=== PATIENT | female | born 1995 | race Caucasian/White ===

== ENCOUNTER 2023-10-14 19:29 | Emergency (ER) | payer MEDICARE, OTHER ==
[~2023-10-14] VITALS: Ht 170.2 cm; Wt 64.9 kg
[~2023-10-14 19:29] MED LIST: CEPH500 PO; CYCL10 PO; HYDROCODONE-AC1 EAC5 PO; PRED20 PO
[2023-10-14 19:35] VITALS: BP 144/81
== END 2023-10-14 21:16 | disposition home or self-care (01) ==
LOC: ER 19:29
DX: S93.504A Unspecified sprain of right lesser toe(s), initial encounter (principal); S93.601A Unspecified sprain of right foot, initial encounter; J45.909 Unspecified asthma, uncomplicated; W20.8XXA Other cause of strike by thrown, projected or falling object, initial encounter; Y99.0 Civilian activity done for income or pay; Z88.0 Allergy status to penicillin; Z88.5 Allergy status to narcotic agent; Z79.52 Long term (current) use of systemic steroids
CPT/HCPCS: 73630; 99283-25

== ENCOUNTER 2023-10-15 13:43 | Emergency (ER) | payer MEDICARE, OTHER ==
[~2023-10-15] VITALS: Ht 170.2 cm; Wt 64.9 kg
[2023-10-15 13:58] VITALS: BP 98/69
[2023-10-15 14:59] LABS: Influenza A, PCR NEGATIVE (NEGATIVE); Influenza B, PCR NEGATIVE (NEGATIVE); Resp Syncytial Virus, PCR NEGATIVE (NEGATIVE); SARS-Cov-2 (COVID-19) PCR, MMC NEGATIVE (NEGATIVE)
== END 2023-10-15 15:32 | disposition home or self-care (01) ==
LOC: ER 13:43
PROVIDERS: Physician Assistant
DX: J06.9 Acute upper respiratory infection, unspecified (principal); Z20.822 Contact with and (suspected) exposure to COVID-19; Z88.0 Allergy status to penicillin; Z88.5 Allergy status to narcotic agent; Z91.018 Allergy to other foods; Z91.030 Bee allergy status
CPT/HCPCS: 0241U; 99283

== ENCOUNTER → 2023-10-23 | Outpatient (CLI) | payer MEDICARE, OTHER ==
[2023-10-24 12:28] LABS: Candida species (DNA Probe) Negative (NEGATIVE); G. vaginalis (DNA Probe) Positive (NEGATIVE); T. vaginalis (DNA Probe) Negative (NEGATIVE)
[2023-10-27 12:34] LABS: APTIMA MEDIA TYPE Unisex Swab; C. TRACHOMATIS BY TMA Negative (Negative); N. GONORRHOEAE BY TMA Negative (Negative); SPECIMEN SOURCE Not Provided; T. VAGINALIS BY TMA Negative (Negative)
== END ==
LOC: LAB 18:04 → LAB SHORT 18:04
PROVIDERS: Physician Assistant Surgical
DX: Z72.51 High risk heterosexual behavior (principal)
CPT/HCPCS: 87480; 87491; 87510; 87591; 87660; 87661

== ENCOUNTER 2024-02-12 21:48 | Emergency (ER) | payer OTHER, MEDICARE ==
[~2024-02-12] VITALS: Ht 170.2 cm; Wt 63.5 kg
[2024-02-12 22:13] VITALS: BP 120/78
[2024-02-12] MEDS ORDERED: Ketorolac Tromethamine 30mg Vial IV ONE (23:00)
[2024-02-12] MEDS ORDERED: Prochlorperazine Edisylate 10 mg Vial IV ONE (23:00)
[2024-02-12] MEDS ORDERED: Ondansetron HCl 2 MG / ML 2ML Vial IV ONE (23:00)
[2024-02-12] MEDS ORDERED: RX Prepack 2 Tabs Ondansetron ODT 4MG UD ONE (23:00)
[2024-02-12] MEDS ORDERED: DiphenhydrAMINE HCl 50 MG/ML 1ML Vial IV ONE (23:25)
== END 2024-02-12 23:47 | disposition home or self-care (01) ==
LOC: ER 21:48
DX: S06.0X0A Concussion without loss of consciousness, initial encounter (principal); G43.909 Migraine, unspecified, not intractable, without status migrainosus; V49.9XXA Car occupant (driver) (passenger) injured in unspecified traffic accident, initial encounter; Z88.8 Allergy status to other drugs, medicaments and biological substances; Z88.0 Allergy status to penicillin; Z88.5 Allergy status to narcotic agent; Z91.018 Allergy to other foods; Z91.030 Bee allergy status; Z79.899 Other long term (current) drug therapy; J45.909 Unspecified asthma, uncomplicated
CPT/HCPCS: 96374; 96375; 99283-25; A9270; J0780; J1200; J1885; J2405

== ENCOUNTER → 2024-09-16 | Outpatient (CLI) | payer MEDICARE, OTHER ==
[~2024-09-16] MED LIST changes: +ONDA4ODT MM
[2024-09-16 15:19] LABS: Bacterial Vaginosis PCR Positive (NEGATIVE); Candida Group, PCR NOT DETECTED (NOT DETECT); Candida glabrata-krusei, PCR NOT DETECTED (NOT DETECT)
[2024-09-20 12:34] LABS: HSV 1 SUBTYPE BY PCR Not Detected; HSV 2 SUBTYPE BY PCR Not Detected; HSV SUBTYPE SOURCE VAGINAL SWAB
== END | disposition home or self-care (01) ==
LOC: LAB SHORT 10:51 → LAB 10:51
PROVIDERS: Emergency Medicine
DX: N89.8 Other specified noninflammatory disorders of vagina (principal)
CPT/HCPCS: 87481; 87529; 87661; 87801

== ENCOUNTER 2024-09-22 20:58 | Emergency (ER) | payer MEDICARE, OTHER ==
[~2024-09-22] VITALS: Ht 170.2 cm; Wt 72.6 kg
[2024-09-22 22:09] LABS: Source, Urine Clean Catch
[2024-09-22 22:25] LABS: Bilirubin, Urine Neg (Neg); Blood, Urine 1+ (Neg); Glucose Qualitative, Urine Neg (Neg); Ketones, Urine Neg (Neg); Leukocyte Esterase, Urine Neg (Neg); Nitrite, Urine Neg (Neg); Protein, Urine Neg (Neg); Specific Gravity, Urine 1.025 (1.003-1.022); Urobilinogen, Urine NORM (Normal)
[2024-09-22 22:26] LABS: BASOPHILS ABSOLUTE AUTO 0.04 K/mm3 (0.00-0.23); BASOPHILS PERCENT AUTO 0 % (0-2); EOSINOPHILS ABSOLUTE AUTO 0.16 K/mm3 (0.00-0.68); EOSINOPHILS PERCENT AUTO 2 % (0-6); Hematocrit 40.9 % (33.0-51.0); Hemoglobin 13.9 g/dL (11.5-16.0); IMMATURE GRAN ABSOLUTE AUTO 0.02 K/mm3 (0.00-0.10); IMMATURE GRAN PERCENT AUTO 0 % (0-1); LYMPHOCYTES ABSOLUTE AUTO 2.64 K/mm3 (0.84-5.20); LYMPHOCYTES PERCENT AUTO 28 % (21-46); MONOCYTES PERCENT AUTO 7 % (4-13); Mean Corpuscular HGB 30.3 pg (26.0-34.0); Mean Corpuscular Volume 89 fL (80-100); NEUTROPHILS ABSOLUTE AUTO 5.93 K/mm3 (1.96-9.15); NEUTROPHILS PERCENT AUTO 63 % (41-73); Platelet Count 277 K/mm3 (150-400); RDW Coefficient Variation 12.6 % (11.7-14.2); RDW Standard Deviation 41.5 fL (35.1-46.3); Red Blood Cell Count 4.58 M/mm3 (3.80-5.20); White Blood Cell Count 9.49 K/mm3 (4.00-11.30)
[2024-09-22 22:33] LABS: Appearance, Urine Clear (Clear); Color, Urine Pale Yellow (P-Yellow)
[2024-09-22 22:34] LABS: Bacteria Many /hpf; Squamous Epithelial Cells Few /hpf (Few); White Blood Cells, Urine 0-2 /hpf (0-5)
[2024-09-22 22:49] LABS: Bilirubin, Total 0.2 mg/dL (0.1-1.0); Creatinine, Blood 0.88 mg/dL (0.40-1.00); Globulin, Blood 3.9 g/dL (2.2-4.0); Potassium, Blood 3.6 mmol/L (3.5-5.5); Total Protein, Blood 7.9 g/dL (6.4-8.2)
[2024-09-22] MEDS ORDERED: Ketorolac Tromethamine 30mg Vial IV ONE (23:40)
[2024-09-22] MEDS ORDERED: NS 1,000 ML IV SCH (23:40)
[2024-09-22] MEDS ORDERED: Acetaminophen 500 MG Tab PO ONE (23:50)
[2024-09-23 00:15] VITALS: BP 113/77
== END 2024-09-23 01:25 | disposition home or self-care (01) ==
LOC: ER 20:58
PROVIDERS: Physician Assistant
DX: N94.6 Dysmenorrhea, unspecified (principal); R31.9 Hematuria, unspecified; J45.909 Unspecified asthma, uncomplicated; Z79.899 Other long term (current) drug therapy; Z88.0 Allergy status to penicillin; Z91.030 Bee allergy status; Z88.5 Allergy status to narcotic agent; Z91.018 Allergy to other foods
CPT/HCPCS: 76830; 76856; 80053; 81001; 81025; 83690; 85025; 87086; 99284-25; A9270; J1885; J7030

== ENCOUNTER 2024-12-29 19:57 | Emergency (ER) | payer MEDICARE, OTHER ==
[~2024-12-29] VITALS: Ht 170.2 cm; Wt 65.8 kg
[2024-12-29 20:31] VITALS: BP 124/87
== END 2024-12-29 22:15 | disposition left against medical advice (07) ==
LOC: ER 19:57
DX: M54.50 Low back pain, unspecified (principal); Z53.29 Procedure and treatment not carried out because of patient's decision for other reasons
CPT/HCPCS: 99281

== ENCOUNTER 2025-05-15 19:55 | Emergency (ER) | payer MEDICARE, OTHER ==
[~2025-05-15] VITALS: Ht 170.2 cm; Wt 65.8 kg
[2025-05-15 20:11] VITALS: BP 133/72
[2025-05-15] MEDS ORDERED: CEFU250T47 PO (20:21)
== END 2025-05-15 20:26 | disposition home or self-care (01) ==
LOC: ER 19:55
DX: T63.441A Toxic effect of venom of bees, accidental (unintentional), initial encounter (principal); L03.114 Cellulitis of left upper limb; J45.909 Unspecified asthma, uncomplicated; Z88.0 Allergy status to penicillin; Z88.5 Allergy status to narcotic agent; Z91.018 Allergy to other foods; Z91.030 Bee allergy status
CPT/HCPCS: 99282; A9270; J7512

== ENCOUNTER 2025-06-19 18:32 | Emergency (ER) | payer MEDICARE, OTHER ==
[~2025-06-19] VITALS: Ht 170.2 cm; Wt 65.8 kg
[~2025-06-19 18:32] MED LIST changes: +CEFU250T47 PO
[2025-06-19 18:42] VITALS: BP 125/99
[2025-06-19 19:10] LABS: BASOPHILS ABSOLUTE AUTO 0.05 K/mm3 (0.00-0.23); BASOPHILS PERCENT AUTO 1 % (0-2); EOSINOPHILS ABSOLUTE AUTO 0.17 K/mm3 (0.00-0.68); EOSINOPHILS PERCENT AUTO 3 % (0-6); Hematocrit 39.1 % (33.0-51.0); Hemoglobin 13.3 g/dL (11.5-16.0); IMMATURE GRAN ABSOLUTE AUTO 0.02 K/mm3 (0.00-0.10); IMMATURE GRAN PERCENT AUTO 0 % (0-1); LYMPHOCYTES ABSOLUTE AUTO 2.03 K/mm3 (0.84-5.20); LYMPHOCYTES PERCENT AUTO 32 % (21-46); MONOCYTES ABSOLUTE AUTO 0.48 K/mm3 (0.16-1.47); MONOCYTES PERCENT AUTO 8 % (4-13); Mean Corpuscular HGB Conc 34.0 g/dL (31.5-36.5); Mean Corpuscular Volume 89 fL (80-100); NEUTROPHILS ABSOLUTE AUTO 3.69 K/mm3 (1.96-9.15); NEUTROPHILS PERCENT AUTO 57 % (41-73); NRBC ABSOLUTE 0.00 K/mm3 (0.00-0.02); NRBC Auto 0.0 /100 WBC (0.0-0.2); Platelet Count 283 K/mm3 (150-400); RDW Coefficient Variation 12.7 % (11.7-14.2); RDW Standard Deviation 41.6 fL (35.1-46.3)
[2025-06-19 19:43] LABS: Source, Urine Clean Catch
[2025-06-19 19:53] LABS: Bilirubin, Urine Neg (Neg); Glucose Qualitative, Urine Neg (Neg); Ketones, Urine Neg (Neg); Leukocyte Esterase, Urine Neg (Neg); Protein, Urine Neg (Neg); Specific Gravity, Urine 1.010 (1.003-1.022); Urobilinogen, Urine NORM (Normal)
[2025-06-19 19:53] LABS: Alanine Aminotransfer (ALT/SGP 19.0 U/L (12-78); Albumin, Blood 4.1 g/dL (3.4-5.0); Albumin/Globulin Ratio 1.2 (0.8-1.8); Anion Gap 7.0 mmol/L (3-11); Aspartate Aminotrans (AST/SGOT 14.0 U/L (12-37); Bilirubin, Total 0.3 mg/dL (0.1-1.0); Blood Urea Nitrogen 8.0 mg/dL (8-24); CO2, Blood 27.0 mmol/L (21-32); Calcium, Blood 9.0 mg/dL (8.5-10.1); Chloride, Blood 107.0 mmol/L (98-108); Creatinine, Blood 0.79 mg/dL (0.40-1.00); Globulin, Blood 3.5 g/dL (2.2-4.0); Glucose, Blood 95.0 mg/dL (70-99); Potassium, Blood 3.5 mmol/L (3.5-5.5); Sodium, Blood 137.0 mmol/L (136-145); Total Protein, Blood 7.6 g/dL (6.4-8.2)
[2025-06-19 20:03] LABS: Color, Urine Pale Yellow (P-Yellow)
[2025-06-19 20:04] LABS: White Blood Cells, Urine 0-2 /hpf (0-5)
== END 2025-06-19 20:43 | disposition home or self-care (01) ==
LOC: ER 18:32
PROVIDERS: Student in an Organized Health Care Education/Training Program
DX: N93.9 Abnormal uterine and vaginal bleeding, unspecified (principal); N83.201 Unspecified ovarian cyst, right side; J45.909 Unspecified asthma, uncomplicated; Z97.5 Presence of (intrauterine) contraceptive device; Z88.0 Allergy status to penicillin; Z88.5 Allergy status to narcotic agent; Z91.030 Bee allergy status; Z91.018 Allergy to other foods
CPT/HCPCS: 76830; 76856; 80053; 81001; 83690; 84703; 85025; 86850; 86900; 86901; 99284-25

== ENCOUNTER 2025-07-15 20:23 | Emergency (ER) | payer MEDICARE, OTHER ==
[~2025-07-15] VITALS: Ht 170.2 cm; Wt 68.0 kg
[2025-07-15 21:57] LABS: BASOPHILS ABSOLUTE AUTO 0.06 K/mm3 (0.00-0.23); BASOPHILS PERCENT AUTO 1 % (0-2); EOSINOPHILS ABSOLUTE AUTO 0.19 K/mm3 (0.00-0.68); EOSINOPHILS PERCENT AUTO 2 % (0-6); Hematocrit 39.5 % (33.0-51.0); Hemoglobin 13.9 g/dL (11.5-16.0); IMMATURE GRAN ABSOLUTE AUTO 0.03 K/mm3 (0.00-0.10); IMMATURE GRAN PERCENT AUTO 0 % (0-1); LYMPHOCYTES ABSOLUTE AUTO 3.12 K/mm3 (0.84-5.20); LYMPHOCYTES PERCENT AUTO 30 % (21-46); MONOCYTES ABSOLUTE AUTO 0.68 K/mm3 (0.16-1.47); MONOCYTES PERCENT AUTO 7 % (4-13); Mean Corpuscular HGB Conc 35.2 g/dL (31.5-36.5); Mean Corpuscular Volume 86 fL (80-100); NEUTROPHILS ABSOLUTE AUTO 6.33 K/mm3 (1.96-9.15); NEUTROPHILS PERCENT AUTO 61 % (41-73); NRBC ABSOLUTE 0.00 K/mm3 (0.00-0.02); NRBC Auto 0.0 /100 WBC (0.0-0.2); Platelet Count 284 K/mm3 (150-400); RDW Coefficient Variation 12.6 % (11.7-14.2); RDW Standard Deviation 39.8 fL (35.1-46.3)
[2025-07-15 22:08] LABS: Alanine Aminotransfer (ALT/SGP 20.0 U/L (12-78); Albumin, Blood 4.4 g/dL (3.4-5.0); Albumin/Globulin Ratio 1.4 (0.8-1.8); Anion Gap 11.0 mmol/L (3-11); Aspartate Aminotrans (AST/SGOT 20.0 U/L (12-37); Bilirubin, Total 0.3 mg/dL (0.1-1.0); Blood Urea Nitrogen 10.0 mg/dL (8-24); CO2, Blood 22.0 mmol/L (21-32); Calcium, Blood 8.9 mg/dL (8.5-10.1); Chloride, Blood 106.0 mmol/L (98-108); Creatinine, Blood 0.75 mg/dL (0.40-1.00); Globulin, Blood 3.2 g/dL (2.2-4.0); Glucose, Blood 96.0 mg/dL (70-99); Magnesium, Blood 2.1 mg/dL (1.6-2.4); Potassium, Blood 3.7 mmol/L (3.5-5.5); Sodium, Blood 135.0 mmol/L (136-145); Total Protein, Blood 7.6 g/dL (6.4-8.2)
[2025-07-15 22:43] LABS: Influenza A, PCR NEGATIVE (NEGATIVE); Influenza B, PCR NEGATIVE (NEGATIVE); Resp Syncytial Virus, PCR NEGATIVE (NEGATIVE); SARS-Cov-2 (COVID-19) PCR, MMC NEGATIVE (NEGATIVE)
[2025-07-16] VITALS: BP 126/86
== END 2025-07-16 00:12 | disposition home or self-care (01) ==
LOC: ER 20:23
PROVIDERS: Student in an Organized Health Care Education/Training Program
DX: R07.9 Chest pain, unspecified (principal); Z79.52 Long term (current) use of systemic steroids; Z79.899 Other long term (current) drug therapy; Z88.0 Allergy status to penicillin; Z88.1 Allergy status to other antibiotic agents; Z91.018 Allergy to other foods; Z91.030 Bee allergy status
CPT/HCPCS: 71045; 80053; 83690; 83735; 84484; 84703; 85025; 87637; 93005; 93010; 99285-25